=== PATIENT | female | born 1990 | race Caucasian/White ===

== ENCOUNTER 2021-09-27 12:30 | Inpatient (IN) | payer BC ==
[~2021-09-27] VITALS: Ht 162.6 cm; Wt 98.4 kg
--- NOTE | 2021-09-27 12:42 | NUR ---
The patient is [id number] from home, c/o lower back pain since last night, took ibuprofen but did not help the pain 10/10 ps. In room air and denies SOB. Respiration regular and unlabored. Will continue to monitor the patient.
--- NOTE | 2021-09-27 12:45 | NUR ---
UNABLE TO PROVIDE URINE, AWARE, GIVEN CUP OF WATER
[2021-09-27] MEDS ORDERED: KETOROLAC TROMETHAMINE INJ 30 MG/ML VIAL IV ONE (13:30)
[2021-09-27] MEDS ORDERED: CYCLOBENZAPRINE 10 MG TABLET PO ONE (13:30)
[2021-09-27] MEDS ORDERED: IV NS 0.9% 500 ML BAG IV ONE (13:30)
[2021-09-27] MEDS ORDERED: MORPHINE SULFATE INJ 2 MG/ML DISP.SYRIN IV ONE (13:30)
[2021-09-27] MEDS ORDERED: ONDANSETRON HCL/PF 4 MG/2 ML VIAL IV ONE (13:30)
[2021-09-27] MEDS ORDERED: ONDANSETRON HCL/PF 4 MG/2 ML VIAL ONE (13:31)
[2021-09-27] MEDS ORDERED: KETOROLAC TROMETHAMINE INJ 30 MG/ML VIAL ONE (13:32)
[2021-09-27] MEDS ORDERED: CYCLOBENZAPRINE 10 MG TABLET ONE (13:32)
[2021-09-27] MEDS ORDERED: MORPHINE SULFATE INJ 4 MG/ML DISP.SYRIN ONE (13:32)
--- NOTE | 2021-09-27 13:40 | NUR ---
COURTNEY Amanda AC 20G. LABS DRAWN AND SENT
--- NOTE | 2021-09-27 13:46 | NUR ---
US TECH AT BEDSIDE FOR ULTRASOUND
[2021-09-27 14:07] LABS: BASOPHILS # (AUTO) 0.1 K/uL (0.0-0.2); BASOPHILS % (AUTO) 0.6 % (0.0-2.0); EOSINOPHILS % (AUTO) 0.4 % (0.0-6.0); HEMATOCRIT 40 % (33-45); HEMOGLOBIN 13.7 g/dL (11.5-14.8); LYMPHOCYTES # (AUTO) 1.5 K/uL (0.8-4.8); LYMPHOCYTES % (AUTO) 14.9 % (20.0-44.0); MEAN CORPUSCULAR HGB CONC 34 g/dl (31.0-36.0); MEAN CORPUSCULAR VOLUME 84 fL (82-100); MONOCYTES # (AUTO) 0.7 K/uL (0.1-1.30); MONOCYTES % (AUTO) 6.8 % (2.0-12.0); NEUTROPHILS # (AUTO) 7.6 K/uL (1.8-8.9); NEUTROPHILS % (AUTO) 77.3 % (43.0-81.0); PLATELET COUNT (AUTO) 299 K/uL (150-450); RED BLOOD CELL COUNT(AUTO) 4.78 MIL/uL (4.0-5.2); WHITE BLOOD COUNT (AUTO) 9.9 K/uL (4.3-11.0)
[2021-09-27] MEDS ORDERED: LEVO150T8 PO (14:17)
[2021-09-27] MEDS ORDERED: OMEG1CAP PO (14:17)
[2021-09-27] MEDS ORDERED: CHOL100043 PO (14:17)
[2021-09-27] MEDS ORDERED: MULT-1200 PO (14:17)
--- NOTE | 2021-09-27 14:31 | NUR ---
[facility] CALLED NUTRITION SERVICES MANAGER PAGED.
--- NOTE | 2021-09-27 14:35 | NUR ---
COVID ANTIGEN SWAB DONE AND SENT TO THE LAB
[2021-09-27 14:38] LABS: CALCIUM, SERUM 8.7 mg/dL (8.5-10.1); CREATININE 0.8 mg/dL (0.6-1.3); POTASSIUM 3.4 mmol/L (3.5-5.1)
--- NOTE | 2021-09-27 14:48 | NUR ---
BACK FROM CT VIA JUSTINE
[2021-09-27 14:56] LABS: PH,URINE 7.5 (5.0-8.0); PROTEIN,URINE 2+ mg/dl (NEGATIVE)
[2021-09-27 14:57] LABS: BILIRUBIN,URINE NEGATIVE (NEGATIVE); NITRITE, URINE NEGATIVE (NEGATIVE); UGLUCOSE NEGATIVE (NEGATIVE); UROBILINOGEN,URINE 0.2 EU/dL (0.2)
[2021-09-27 14:58] LABS: COLOR,URINE RED (YELLOW); LEUKOCYTE ESTERASE ,URINE SMALL (NEGATIVE)
[2021-09-27 15:02] LABS: BACTERIA,URINE 1+ /HPF (None Seen)
[2021-09-27] MEDS ORDERED: MAGNESIUM HYDROXIDE 30 ML UDC PO PRN (18:00)
[2021-09-27] MEDS ORDERED: ONDANSETRON HCL/PF 4 MG/2 ML VIAL IVP PRN (18:00)
[2021-09-27] MEDS ORDERED: MORPHINE SULFATE INJ 2 MG/ML DISP.SYRIN IV PRN (18:00)
[2021-09-27] MEDS ORDERED: Z GUARD REMEDY 4 OZ OINT TP PRN (18:00)
[2021-09-27] MEDS ORDERED: MAG HYDROX/AL HYDROX/SIMETH 30 ML UDC PO PRN (18:00)
[2021-09-27] MEDS ORDERED: ACETAMINOPHEN 325 MG TABLET PO PRN (18:00)
[2021-09-27] MEDS ORDERED: LORAZEPAM 1 MG TABLET PO PRN (18:00)
[2021-09-27] MEDS ORDERED: IBUPROFEN 600 MG TABLET ONE (18:21)
[2021-09-27] MEDS: IBUPROFEN 600 MG TABLET PO SCH ×2 (18:23→23:58)
--- NOTE | 2021-09-27 18:45 | NUR ---
Maria M dubon in [place] - 09/27/21 at 1847 by RUSTY ROOM 322-1 PER HOUSE SUP REPORT TO BE GIVEN AFTER CHANGE OF SHIFT
--- NOTE | 2021-09-27 18:47 | NUR ---
ROOM 306-1 PER HOUSE SUP REPORT TO BE GIVEN AFTER CHANGE OF SHIFT
--- NOTE | 2021-09-27 19:44 | NUR ---
REPORT GIVEN TO LUCIO Baker RN FOR MIKE
[2021-09-27 20:30] VITALS: BP 143/89
--- NOTE | 2021-09-27 20:36 | NUR ---
PT TRANSFERRED TO [facility] VIA HOSPITAL PROTOCOL. ALL BELONGINGS WITH PT. VSS.
--- NOTE | 2021-09-27 20:40 | NUR ---
MS ANIMAL SHELTER MANAGER NOTE PT TRANSPORTED VIA GURNEY TO THE UNIT AT THIS TIME. PT ADMITTED TO MS UNIT FROM ER UNDER DR VASQUES FOR ADMITTING DX INTRACTABLE BACK PAIN. A/O X4 AND ABLE TO MAKE NEEDS KNOWN. PT IS STABLE ON ROOM AIR. NO SOB OR S/S OF RESPIRATORY DISTRESS. BREATHING EVEN AND UNLABORED. PT REPORTS BACK PAIN 11/25. PAIN MEDICATION OFFERED AND ADMINISTERED. IV ACCES RAC 20 GAUGE INTACT AND PATENT, RUNNING NS @ 75 ML/HR. SKIN IS INTACT. PT ORIENTED TO UNIT, STAFF, AND ROOM. PT BELONGINGS ACCOUNTED FOR AND BELONGINGS LIST SIGNED. SAFETY PRECAUTIONS IN PLACE. BED IN LOWEST LOCKED POSITION, HOB ELEVATED, SIDE RAILS UP X2, AND CALL LIGHT AND TABLE WITHIN REACH. ALL NEEDS MET AT THIS TIME.
[2021-09-27 21:15] VITALS: BP 143/85
[2021-09-27] MEDS: IV NS 0.9% 1,000 ML IV PRN (22:10)
[2021-09-28] MEDS: IBUPROFEN 600 MG TABLET PO SCH ×4 (05:47→23:45)
[2021-09-28 06:31] LABS: BASOPHILS % (AUTO) 0.6 % (0.0-2.0); CREATININE 0.8 mg/dL (0.6-1.3); EOSINOPHILS % (AUTO) 3.2 % (0.0-6.0); HEMATOCRIT 38 % (33-45); HEMOGLOBIN 13.2 g/dL (11.5-14.8); LYMPHOCYTES # (AUTO) 2.4 K/uL (0.8-4.8); LYMPHOCYTES % (AUTO) 38.4 % (20.0-44.0); MEAN CORPUSCULAR HGB CONC 35 g/dl (31.0-36.0); MEAN CORPUSCULAR VOLUME 84 fL (82-100); MONOCYTES # (AUTO) 0.6 K/uL (0.1-1.30); MONOCYTES % (AUTO) 9.6 % (2.0-12.0); NEUTROPHILS % (AUTO) 48.2 % (43.0-81.0); PHOSPHORUS 4.3 mg/dL (2.5-4.9); PLATELET COUNT (AUTO) 259 K/uL (150-450); POTASSIUM 3.4 mmol/L (3.5-5.1); RED BLOOD CELL COUNT(AUTO) 4.52 MIL/uL (4.0-5.2); WHITE BLOOD COUNT (AUTO) 6.3 K/uL (4.3-11.0)
--- NOTE | 2021-09-28 06:33 | NUR ---
MS RN CLOSING NOTE PT AWAKE IN BED. A/O X4 AND ABLE TO MAKE NEEDS KNOWN. PT IS STABLE ON ROOM AIR. NO SOB OR S/S OF RESPIRATORY DISTRESS. BREATHING EVEN AND UNLABORED. IV ACCES RAC 20 GAUGE INTACT AND PATENT, RUNNING NS @ 75 ML/HR. ALL DUE MEDS GIVEN ORDERED. SAFETY PRECAUTIONS IN PLACE AT ALL TIMES. BED IN LOWEST LOCKED POSITION, HOB ELEVATED, SIDE RAILS UP X2, AND CALL LIGHT AND TABLE WITHIN REACH. ALL NEEDS MET AT THIS TIME AND WILL ENDORSE TO ONCOMING NURSE FOR MIKE.
--- NOTE | 2021-09-28 07:30 | NUR ---
MS LUCAS OPENING NOTES: RECEIVED PATIENT IN BED, AWAKE. ALERT, ORIENTED AND ABLE TO VERBALIZED NEEDS. NO SOB OR CARDIAC DISTRESS NOTED, ON O2 INHALATION 22LPM VIA NC. DENIES ANY PAIN AT THIS TIME. WITH IV ACCESS ON RAC g#20 NS @75ML/HR AND INFUSING WELL. SAFETY PRECAUTION MAINTAINED: BED LOCKED AND IN LOWEST POSITION, CALL BUTTON IN EASY REACH FOR HELP. KEPT RESTED AND COMFORTABLE. WILL MONITOR FOR ANY SIGNIFICANT CHANGES. Addendum: 09/28/21 at 1514 by MIKAELA VALERIO RN DISREGARD. ERROR, NOT ON O2
--- NOTE | 2021-09-28 07:30 | NUR ---
MS RN OPENING NOTES: RECEIVE PATIENT IN BED, AWAKE. ALERT, ORIENTED X 4 AND ABLE TO VERBALIZED NEEDS. NO SOB OR CARDIAC DISTRESS NOTED, ON ROOM AIR AT THIS TIME AND TOLERATED WELL. DENIES ANY PAIN AT THIS TIME. WITH IV ACCESS ON RAC G#20 NS @75ML/HR AND INFUSING WELL. SAFETY PRECAUTION MAINTAINED: BED LOCKED AND IN LOWEST POSITION, CALL BUTTON IN EASY REACH FOR HELP. KEPT RESTED AND COMFORTABLE.WILL MONITOR FOR ANY SIGNIFICANT CHANGES AND WILL REPORT TO .
[2021-09-28] MEDS: LEVOTHYROXINE SODIUM 75 MCG TABLET PO SCH (07:44)
[2021-09-28] MEDS ORDERED: POTASSIUM CHLORIDE 20 MEQ TAB.PRT.SR PO ONE (08:00)
[2021-09-28 08:28] VITALS: BP 142/84
[2021-09-28] MEDS: IV NS 0.9% 1,000 ML IV PRN (12:13)
[2021-09-28 16:30] VITALS: BP 142/88
--- NOTE | 2021-09-28 18:47 | NUR ---
MS RN CLOSING NOTES: PATIENT IN BED, AWAKE. ALERT, ORIENTED AND ABLE TO VERBALIZED NEEDS. NO SOB OR CARDIAC DISTRESS NOTED, ON ROOM AIR AT THIS TIME AND TOLERATED WELL. DENIES ANY PAIN AT THIS TIME. WITH IV ACCESS ON RAC G#20 NS @75ML/HR AND INFUSING WELL. SAFETY PRECAUTION MAINTAINED: BED LOCKED AND IN LOWEST POSITION, CALL BUTTON IN EASY REACH FOR HELP. KEPT RESTED AND COMFORTABLE.ENDORSED TO MAPPING PILOT NURSE FOR MIKE.
[2021-09-28 20:00] VITALS: BP 158/98
--- NOTE | 2021-09-28 20:06 | NUR ---
MS RN OPENING NOTES: PATIENT IN BED, AWAKE. ALERT, ORIENTED AND ABLE TO VERBALIZED NEEDS. NO SOB OR CARDIAC DISTRESS NOTED, ON ROOM AIR AT THIS TIME AND TOLERATED WELL. DENIES ANY PAIN AT THIS TIME. WITH IV ACCESS ON RAC G#20 NS @75ML/HR AND INFUSING WELL. SAFETY PRECAUTION MAINTAINED: BED LOCKED AND IN LOWEST POSITION, CALL BUTTON IN EASY REACH FOR HELP. KEPT RESTED AND COMFORTABLE. WILL CONTINUE TO MONITOR.
[2021-09-29] MEDS: IBUPROFEN 600 MG TABLET PO SCH ×3 (05:56→13:20)
[2021-09-29] MEDS: LEVOTHYROXINE SODIUM 75 MCG TABLET PO SCH (06:34)
--- NOTE | 2021-09-29 06:35 | NUR ---
MS RN CLOSING NOTES: PATIENT IN BED, AWAKE. ALERT, ORIENTED AND ABLE TO VERBALIZED NEEDS. NO SOB OR CARDIAC DISTRESS NOTED, ON ROOM AIR AT THIS TIME AND TOLERATED WELL. DENIES ANY PAIN AT THIS TIME. WITH IV ACCESS ON RAC G#20 PER PT DOES NOT WANT IV FLUIDS CONNECTED AT THIS TIME. SAFETY PRECAUTION MAINTAINED: BED LOCKED AND IN LOWEST POSITION, CALL BUTTON IN EASY REACH FOR HELP. KEPT RESTED AND COMFORTABLE. PT WISHES TO SPEAK WITH PCP TODAY REGARDING CARE PLAN AND PAIN MANAGEMENT CHARGE NURSE MADE AWARE WILL ENDORSE TO DAY SHIFT NURSE TO F/U.
--- NOTE | 2021-09-29 07:38 | NUR ---
MS RN OPENING NOTES RECEIVED PATIENT AWAKE IN BED, ALERT, ORIENTED AND ABLE TO VERBALIZED NEEDS. CURRENTLY, NO SOB OR CARDIAC DISTRESS; ON ROOM AIR AT THIS TIME AND TOLERATED WELL. DENIES ANY PAIN AT THIS TIME. WITH IV ACCESS ON RAC G#20 PER. SAFETY PRECAUTION MAINTAINED: BED LOCKED AND IN LOWEST POSITION, CALL BUTTON IN EASY REACH FOR HELP. KEPT RESTED AND COMFORTABLE. WILL CONTINUE TO MONITOR FOR MIKE.
[2021-09-29] MEDS ORDERED: IBUP-1953 PO (11:28)
--- NOTE | 2021-09-29 16:45 | NUR ---
MS LUMBER STICKER NOTES PT IS AWAKE, ALERT, AND ORIENTED X4. PATIENT IS IN RA AND ABLE TO TOLERATE IT WELL WITHOUT ANY SIGNS OF DISCOMFORT AND SOB. BREATHING EVEN AND UNLABORED. IV SITE IN R AC 20G DISCONNECTED, NO S/S OF INFILTRATION AND BLEEDING. PATIENT TEACHING IS GIVEN TO PATIENT, AND SHE VERBALIZED UNDERSTANDING. BELONGING LISTS AND D/C PACKET WERE COMPLETED. PATIENT IS STABLE AND DROPPED BY THE LOBBY.
== END 2021-09-29 17:04 | disposition home or self-care (01) | DRG 552 ==
LOC: ER 12:33 → TRANSITION 15:34 → TELE 18:49 → MED 20:41
PROVIDERS: ADMIT Internal Medicine; ATTEND Internal Medicine
DX: M48.07 Spinal stenosis, lumbosacral region (principal); M51.37 Other intervertebral disc degeneration, lumbosacral region; Z85.850 Personal history of malignant neoplasm of thyroid; C73 Malignant neoplasm of thyroid gland; Z92.3 Personal history of irradiation; Z79.890 Hormone replacement therapy; Z79.899 Other long term (current) drug therapy; E87.6 Hypokalemia; M62.830 Muscle spasm of back
CPT/HCPCS: 36415; 72131-TC; 76856-TC; 80048-TC; 81001; 83735-TC; 84100-TC; 84703-TC; 85025-TC; 85652-TC; 86140-TC; 87081-TC; 87086-TC; 97116-TC; 97530-TC; G0378; J1885; J2270; J2405; J7030; J7040